=== PATIENT | female | born 1960 | race Caucasian/White ===

== ENCOUNTER 2016-06-07 15:17 | Emergency (ER) | payer MEDICAID ==
[~2016-06-07] VITALS: Ht 165.1 cm; Wt 83.0 kg
[~2016-06-07 15:17] MED LIST: RESTORIL PO
[2016-06-07 15:27] VITALS: BP 105/83; PULSE 85; RESP 19; TEMP 97.2; O2SAT 95
--- NOTE | 2016-06-07 15:30 | NUR ---
Patient triaged and placed in waiting room. VSS and patient appears in no acute distress at this time. Accompanied by SELF, awaiting available bed, and MD notified of need for MSE.
--- NOTE | 2016-06-07 17:08 | NUR ---
BROUGHT BACK TO [facility] AND REPORT GIVEN TO RANDY
--- NOTE | 2016-06-07 17:14 | NUR ---
Patient to ER C/O severe 10 bilateral shoulder pain non-radiating, started yesterday. Patient states that she has chronic fibromyalgia and arthritis and once in a while has flareups with severe pain. AAOx4, unlabored breathing, no signs of acute distress. No signs of trauma, no bruising.
--- NOTE | 2016-06-07 17:15 | NUR ---
C/O chronic bilat shoulder pain which is related to the bed she is sleeping per her.
--- NOTE | 2016-06-07 17:40 | NUR ---
ER MD Wynn at bedside evaluating the patient
[2016-06-07 17:58] LABS: BASOPHILS % (AUTO) 0.4 % (0.0-2.0); EOSINOPHILS # (AUTO) 0.1 K/uL (0.0-0.4); EOSINOPHILS % (AUTO) 1.5 % (0.0-4.0); HEMATOCRIT 37.6 % (36-48); LYMPHOCYTES # (AUTO) 3.3 K/uL (1.0-5.5); LYMPHOCYTES % (AUTO) 37.7 % (20.5-51.5); MEAN CORPUSCULAR HEMOGLOBIN 30 pg (27-31); MEAN CORPUSCULAR HGB CONC 35 % (32-36); MEAN CORPUSCULAR VOLUME 86 fL (79.0-98.0); MONOCYTES # (AUTO) 0.5 K/uL (0.0-1.0); MONOCYTES % (AUTO) 5.3 % (1.7-9.3); NEUTROPHILS # (AUTO) 4.8 K/uL (1.8-7.7); NEUTROPHILS % (AUTO) 55.1 % (40.0-70.0); PLATELET COUNT (AUTO) 189 K/uL (130-430); RED BLOOD CELL COUNT(AUTO) 4.38 MIL/uL (4.2-6.2); RED CELL DISTRIBUTION WIDTH 12.6 % (9.0-15.0); WHITE BLOOD COUNT (AUTO) 8.7 K/uL (4.8-10.8)
[2016-06-07] MEDS ORDERED: KETOROLAC TROMETHAMINE 60 MG/2 ML VIAL IM ONE (18:00)
--- NOTE | 2016-06-07 18:05 | NUR ---
TAKEN TO RADIOLOGY AMBULATORY
[2016-06-07 18:12] LABS: CALCIUM 9.8 mg/dL (8.4-11.0); CREATININE 1.18 mg/dL (0.55-1.30); POTASSIUM 5.1 mmol/L (3.5-5.1)
[2016-06-07 18:18] LABS: ALBUMIN 3.9 g/dL (3.4-4.8); TOTAL BILIRUBIN 0.3 mg/dL (0.0-1.0); TOTAL PROTEIN, SERUM 7.8 g/dL (6.4-8.3)
--- NOTE | 2016-06-07 18:18 | NUR ---
RETURNED TO [facility]
[2016-06-07 18:47] VITALS: BP 114/79; PULSE 81; RESP 19; TEMP 97.9; O2SAT 98
--- NOTE | 2016-06-07 18:47 | NUR ---
Patient given written and verbal discharge instructions and verbalizes understanding. ER MD Wynn discussed with patient the results and treatment provided. Patient in stable condition. ID arm band removed. Rx of norco & motrin given. Patient educated on pain management and to follow up with PMD. Pain Scale 0/10. Opportunity for questions provided and answered.
== END 2016-06-07 18:47 | disposition home or self-care (01) ==
LOC: SED 15:17
DX: M25.512 Pain in left shoulder (principal); M25.511 Pain in right shoulder
CPT/HCPCS: 36415; 73030; 80053; 84550; 85025; 96372; 99285; J1885